=== PATIENT | female | born 1985 | race Caucasian/White ===

== ENCOUNTER 2020-04-25 06:45 | Day surgery (SDC) | payer OTHER ==
[~2020-04-25] VITALS: Ht 160 cm; Wt 54.4 kg
[2020-04-25] MEDS ORDERED: diphenhydrAMINE 50 MG/ML VIAL ONE (07:49)
[2020-04-25] MEDS ORDERED: MIDAZOLAM 5 MG/5 ML VIAL ONE (07:49)
[2020-04-25] MEDS ORDERED: fentaNYL citrate 0.05 MG/ML VIAL ONE (07:49)
[2020-04-25] MEDS: LIDOCAINE VISCOUS 2% 20 ML UDC ONE (08:13)
[2020-04-25] MEDS: MIDAZOLAM 2 MG/2 ML VIAL IVP ONE (08:15)
[2020-04-25] MEDS: fentaNYL citrate 0.05 MG/ML VIAL IVP ONE (08:16)
[2020-04-25] MEDS: diphenhydrAMINE 50 MG/ML VIAL IVP ONE (08:17)
== END 2020-04-25 09:20 | disposition home or self-care (01) ==
LOC: MDS 06:45 → MMU 06:46 → MDS 09:20
PROVIDERS: ATTEND Internal Medicine Gastroenterology
DX: R10.9 Unspecified abdominal pain (principal); K29.70 Gastritis, unspecified, without bleeding; R63.4 Abnormal weight loss; K59.00 Constipation, unspecified; Z79.899 Other long term (current) drug therapy
CPT/HCPCS: 43239; 81025; J1200; J2250; J3010